=== PATIENT | female | born 1965 | race Caucasian/White ===

== ENCOUNTER → 2017-05-30 | Day surgery (SDC) | payer SELFPAY ==
[~2017-05-30] VITALS: Ht 165.1 cm; Wt 58.1 kg
[~2017-05-30] MED LIST: CLARITIN10 M1 PO; FLONASE ALLERG9.9 ML; LUNESTA3 M1 PO; TRINTELLIX5 MG; WELLBUTRIN SR150 M1 PO; XANAX1 M1 PO
--- NOTE | 2017-05-30 17:13 | Operative Report ---
Operative/Inv Procedure Report Surgery Date: 05/30/17 Name of Procedure: Bilateral breast augmentation mastopexy, liposuction trunk and thighs, belt lipectomy, gallbladder revision nose fat grafting to buttock Pre-Operative Diagnosis: Lipodystrophy breast ptosis Post-Operative Diagnosis: same Estimated Blood Loss: scant (300) Surgeon/Chemical Research Technician: REMINGTON AGUIRRE,WENDIE Feliciano Anesthesia: general endotracheal tube Operative/Procedure Note Note: Patient was counseled extensively during multiple office visits regards to the procedures the alternatives the risks expect outcomes patient seen with her request for surgical intervention to treat small breasts that have bilateral ptosis of the of the abdominal wall and excess abdominal wall tissues including the mons with the sense and atrophy of the buttocks in her upper thighs and back. She has requested a belt lipectomy bilateral breast augmentation mastopexy scar revision of nose mons upper inner thighs back with fat transfer to the buttock. No guarantees were given or implied. We talked about the commonly seen complications as well as those are uncommon. She was given a SPS informed consents which she has returned sign. We talked about difficulty with infections and breast implants and wound requiring explantation revision or salvage. Numbness structures of the breast on elsewhere and loss of skin possibly is an ischemic complication from surgery. We talked about numbness that could be temporary or prolonged or permanent. About dehisced wounds and the prolonged wound care that would be required and the excess scarring that results. Fat grafting no percentage was guaranteed but less than 50 was discussed. He was marked in the standing position and a photograph was taken of her back so she can see the areas of would be treated those that would not be. She was marked with a measuring tape for all surgical sites. She signed informed consent after additional discussion today. She was taken to the operating room placed supine on the table Venodyne boots are placed and then general anesthesia was established intravenous antibiotics were given. Circumareolar vertical mastopexy was done with subglandular 330 mL textured gummy Bear Allergan implants are tacking was done before the final excision in the upright position. Of note multiple glove changes no touch technique Jale funnel triple antibiotics for Betadine were used throughout the breast procedure. Was carried out after satisfaction with the position. Complexes were measured from the sternum. Attention was then turned to the abdomen where an abdominoplasty was performed in the semi-Srinivasan's position with a 3 layer closure over a drain. Plication was done 2 layers nonabsorbable sutures from xiphoid to pubis. Tinea space. Was carried out of the mons after placing tumescent. Liposuction was done of the upper inner thighs which were marked preoperatively. Tumescent technique was used. She was then turned into the prone position and appropriately padded offloading pressure from the breasts. A total of 2 L of tumescent was used during the procedure and that was instilled in the back as well. His of liposuction to was removed. Skin excision was performed posteriorly 3 layers with oh Prolenes and correction 0 Vicryl and 20 Vicryls was placed in the subcutaneous space. Contours was seen on the table. Approximate 700 mL was placed in the subcutaneous planes and the bilateral buttocks providing good shape. Dictation
== END ==
LOC: STS 02:59
DX: Z41.1 Encounter for cosmetic surgery (principal); N64.81 Ptosis of breast; E65 Localized adiposity; L90.5 Scar conditions and fibrosis of skin
CPT/HCPCS: 81025; C9399; J0131; J0171; J0690; J1580; J2250; J2405